=== PATIENT | male | born 1965 | race Caucasian/White ===

== ENCOUNTER → 2016-05-20 | Outpatient (CLI) | payer MEDICARE, BC, MEDICAID ==
[2016-05-20 08:54] LABS: BASOPHIL # 0.1 K/uL (0.0-0.2); EOSINOPHIL # 0.3 K/uL (0.0-0.5); EOSINOPHIL % 5.1 %; HEMATOCRIT 38.7 % (37.0-53.0); HEMOGLOBIN 13.3 g/dL (12.0-17.0); IMMATURE GRANULOCYTE % 0.4 %; LYMPHOCYTE # 1.5 K/uL (0.8-4.0); MCH 31.7 pg (27.0-34.0); MCHC 34.4 gm/dL (32.0-36.5); MCV 92.1 fl (83.0-98.0); MONOCYTE # 0.9 K/uL (0.0-1.0); MONOCYTE % 16.5 %; MPV 9.3 fl (9.4-12.4); NEUTROPHIL # (ANC) 2.4 K/uL (1.4-9.0); NRBC % 0 /100WBC (0-0.00); PLATELET COUNT 226 K/uL (150-450); RDW-CV 12.2 % (11.9-14.6); WBC 5.1 K/uL (4.0-11.0)
[2016-05-20 09:15] LABS: ALBUMIN 3.5 gm/dL (3.5-5.0); ALK PHOS 91 IU/L (33-138); ALT 20 IU/L (12-78); AST 21 IU/L (10-40); BLOOD UREA NITROGEN 8 mg/dL (6-24); CALCIUM 8.3 mg/dL (8.5-10.5); CO2 32 mMol/L (22-32); CREATININE 0.7 mg/dL (0.6-1.3); ESTIMATED GFR (MDRD EQUATION) > 60; POTASSIUM 4.4 mMol/L (3.7-5.1); SODIUM 127 mMol/L (135-145); TOTAL BILIRUBIN 0.3 mg/dL (0.0-1.5); TOTAL PROTEIN 7.4 g/dL (6.0-8.4)
[2016-05-20 09:16] LABS: ANION GAP 10.4 (10.0-19.0); CHLORIDE 89 mMol/L (96-110)
== END ==
LOC: LBETH 05-19 17:42
PROVIDERS: Psychiatry & Neurology Neurology
DX: G40.901 Epilepsy, unspecified, not intractable, with status epilepticus (principal); E87.1 Hypo-osmolality and hyponatremia; Z79.899 Other long term (current) drug therapy